=== PATIENT | male | born 1975 | race Caucasian/White ===

== ENCOUNTER 2021-06-01 09:42 | Inpatient (IN) ==
[2021-06-01] MEDS ORDERED: 0.9 % Sodium Chloride 1,000 ML IVC ONE (10:13)
[2021-06-01 11:07] LABS: Hemoglobin 11.9 g/dL (12.9-16.9)
[2021-06-01 11:10] LABS: Basophils % 0.1 %; Hematocrit 33.1 % (37.5-50.1); Immature Granulocytes % 0.9 % (0-4); Lymphocytes % 9.2 %; Mean Corpuscular Hemoglobin 29.2 pg (28.0-33.3); Mean Corpuscular Volume 81.3 fL (83.0-100.0); Monocytes # 0.5 K/mcL (0.0-1.3); Monocytes % 3.1 %; Neutrophils # 12.7 K/mcL (1.6-8.9); Platelet Count 113 K/mcL (140-400); Red Blood Count 4.07 M/mcL (4.19-5.50); Red Cell Distribution Width 13.7 % (11.5-14.5); Segmented Neutrophils % 86.7 %; White Blood Count 14.6 K/mcL (4.3-11.1)
[2021-06-01 11:11] LABS: Lymphocytes # 1.3 K/mcL (0.6-4.6)
[2021-06-01 11:28] LABS: Alanine Aminotransferase 32 Units/L (7-52); Albumin 2.4 g/dL (3.5-5.7); Albumin/Globulin Ratio 0.5 (1.1-2.2); Alkaline Phosphatase 89 Units/L (34-104); Aspartate Amino Transferase 41 Units/L (13-39); BUN/Creatinine Ratio 27 (6-26); Bilirubin,Direct 0.1 mg/dL (0.0-0.2); Bilirubin,Indirect 0.6 mg/dL (0.0-1.0); Bilirubin,Total 0.7 mg/dL (0.3-1.0); Blood Urea Nitrogen 24 mg/dL (6-20); Calcium 7.7 mg/dL (8.6-10.3); Carbon Dioxide 22 mEq/L (23-29); Chloride 95 mEq/L (98-107); Ethanol < 10 mg/dL (Less than 10); Globulin 5.1 g/dL (2.4-3.5); Glucose 95 mg/dL (70-105); Lipase 39 Units/L (11-82); Osmolality,Calculated 268 (280-300); Potassium 2.9 mEq/L (3.5-5.1); Sodium 127 mEq/L (136-145); Total Protein 7.5 g/dL (6.4-8.9); eGFR For African Americans > 60 (> 60); eGFR For Non-African Americans > 60 (> 60)
[2021-06-01 11:35] LABS: Influenza A PCR Negative (Negative); Influenza B PCR Negative (Negative); Resp. Syncytial Virus PCR Negative (Negative); SARS-CoV-2 by PCR (In House) Negative (Negative)
[2021-06-01 11:46] LABS: Troponin I 0.77 ng/mL (< 0.04)
[2021-06-01 11:59] LABS: Activated Partial Thrombo Time 28.1 Seconds (26.0-36.0)
[2021-06-01 12:21] LABS: Bacteria,Urine Few per hpf (None-Few); Bilirubin,Urine Negative (Negative); Blood,Urine Large (Negative); Clarity,Urine Clear (Clear); Color,Urine Colorless (Yellow); Glucose,Urine (UA) Normal (Normal); Hyaline Casts,Urine Few per lpf (None Seen); Ketones,Urine Negative (Negative); Leukocyte Esterase,Urine Small (Negative); Mucus,Urine Few per lpf (None-Few); Nitrite,Urine Negative (Negative); Protein,Urine 30 mg/dL (Neg-Trace); Specific Gravity,Urine 1.014 (1.010-1.025); Squamous Epithelial Cell,Urine Few per hpf (None-Few); Urobilinogen,Urine Normal (Normal)
[2021-06-01 12:42] LABS: ABG Base Excess -1 mEq/L (-2 to 3); ABG HCO3 20 mEq/L (21-27); ABG Oxygen Saturation 98 % (95-98); ABG PCO2 24 mmHg (35-45); ABG PH 7.54 pH Units (7.32-7.45); ABG PO2 88 mmHg (85-104); ABG TCO2 21 mEq/L (20-26)
[2021-06-01 12:59] LABS: Amphetamine Screen,Urine Negative ng/mL (Cutoff=1000); Barbiturate Screen,Urine Negative ng/mL (Cutoff=200); Benzodiazepines Screen,Urine Negative ng/mL (Cutoff=200); Cannabinoid Screen,Urine Positive ng/mL (Cutoff = 50); Cocaine Screen,Urine Negative ng/mL (Cutoff= 300); Opiate Screen,Urine Negative ng/mL (Cutoff=300); Phencyclidine Screen,Urine Negative ng/mL (Cutoff=25)
[2021-06-01] MEDS ORDERED: Isovue-370 500 ML BOTTLE IVP ONE (13:04)
[2021-06-01 14:28] LABS: INR 2.1; Prothrombin Time 22.9 Seconds (9.4-12.1)
[2021-06-01] MEDS ORDERED: Potassium Chloride Elixir 20 MEQ/15 ML UDC PO ONE (14:45)
[2021-06-01] MEDS ORDERED: MOM Conc 10 ML UD.LIQ PO PRN (15:49)
[2021-06-01] MEDS ORDERED: Ondansetron ODT 4 MG TAB.RAPDIS SL PRN (15:49)
[2021-06-01] MEDS ORDERED: Mag Hydrox/Al Hydrox/Simeth 30 ML UDC PO PRN (15:49)
[2021-06-01] MEDS ORDERED: Naloxone 0.4 MG/ML INJ IVP PRN (15:49)
[2021-06-01] MEDS ORDERED: Perflutren Lipid Microsphere 1.3 ML in 0.9 % Sodium Chloride 8.7 ML IVP PRN (15:54)
[2021-06-01] MEDS ORDERED: *HR* Heparin 5,000 UNIT/ML VIAL IVP ONE (15:57)
[2021-06-01] MEDS ORDERED: *HR* Heparin 5,000 UNIT/ML VIAL IVP PRN (15:57)
[2021-06-01] MEDS: Heparin 25,000UNIT/250ML 1/2NS 25,000 UNIT/250 ML IV.SOLN IVC SCH (17:10)
[2021-06-01] MEDS: 0.9 % Sodium Chloride 1,000 ML IVC SCH (17:22)
[2021-06-01] MEDS: cefTRIAXone 1,000 MG in 0.9 % Sodium Chloride 10 ML IVP SCH (17:24)
[2021-06-01 22:44] LABS: Hematocrit 31.4 % (37.5-50.1); Hemoglobin 10.5 g/dL (12.9-16.9); Mean Corpuscular HGB Conc 33.4 g/dL (31.6-35.5); Mean Corpuscular Volume 83.7 fL (83.0-100.0); Mean Platelet Volume 11.6 fL (9.4-12.4); Platelet Count 103 K/mcL (140-400); Red Blood Count 3.75 M/mcL (4.19-5.50); Red Cell Distribution Width 13.8 % (11.5-14.5)
[2021-06-01 22:52] LABS: Heparin anti-factor XA UFH 0.22 IU/mL (0.30-0.70); Prothrombin Time 21.7 Seconds (9.4-12.1)
[2021-06-01] MEDS: *HR* Heparin 5,000 UNIT/ML VIAL IVP PRN (23:09)
[2021-06-02 00:51] LABS: CTX-M ESBL Gene Not Detected (Not Detect); IMP Carbapenem-Resist Gene Not Detected (Not Detect); blaKPC Carbapenem-Resist Gene Not Detected (Not Detect)
[2021-06-02 00:52] LABS: A.calcoaceticus-baumannii cplx Not Detected (Not Detect); Bacteroides fragilis by PCR Not Detected (Not Detect); Enterobacter cloacae Cmplx PCR Not Detected (Not Detect); Enterococcus faecalis by PCR Not Detected (Not Detect); Enterococcus faecium by PCR Not Detected (Not Detect); Escherichia coli by PCR Not Detected (Not Detect); Klebsiella aerogenes by PCR Not Detected (Not Detect); Klebsiella oxytoca by PCR Not Detected (Not Detect); NDM Carbapenem-Resist Gene Not Detected (Not Detect); OXA-48-like Carbap-Resist Gene Not Detected (Not Detect); Staph epidermidis by PCR Not Detected (Not Detect); Staph lugdunensis by PCR Not Detected (Not Detect); Staphylococcus aureus by PCR Not Detected (Not Detect); Staphylococcus by PCR Not Detected (Not Detect); Streptococcus agalactiae(B)PCR Not Detected (Not Detect); Streptococcus by PCR Not Detected (Not Detect); Streptococcus pneumoniae PCR Not Detected (Not Detect); Streptococcus pyogenes (A) PCR Not Detected (Not Detect); VIM Carbapenem-Resist Gene Not Detected (Not Detect)
[2021-06-02 00:53] LABS: Candida albicans by PCR Not Detected (Not Detect); Candida auris by PCR Not Detected (Not Detect); Candida glabrata by PCR Not Detected (Not Detect); Candida krusei by PCR Not Detected (Not Detect); Candida parapsilosis by PCR Not Detected (Not Detect); Candida tropicalis by PCR Not Detected (Not Detect); Crypto. neoformans/gattii PCR Not Detected (Not Detect); Klebs. pneumoniae group by PCR Not Detected (Not Detect); Proteus by PCR Not Detected (Not Detect); Pseudomonas aeruginosa by PCR Not Detected (Not Detect); Salmonella species by PCR Not Detected (Not Detect); Serratia marcescens by PCR DETECTED (Not Detect); Stenotrophomonas maltophilia Not Detected (Not Detect)
[2021-06-02 01:56] LABS: Basophils % 0.1 %; Monocytes % 3.3 %
[2021-06-02 01:58] LABS: Hematocrit 29.8 % (37.5-50.1); Hemoglobin 10.3 g/dL (12.9-16.9); Immature Granulocytes % 0.8 % (0-4); Immature Platelets 7.6 % (1.1-6.1); Lymphocytes # 1.2 K/mcL (0.6-4.6); Lymphocytes % 9.6 %; Mean Corpuscular HGB Conc 34.6 g/dL (31.6-35.5); Mean Corpuscular Hemoglobin 28.4 pg (28.0-33.3); Mean Corpuscular Volume 82.1 fL (83.0-100.0); Mean Platelet Volume 12.7 fL (9.4-12.4); Monocytes # 0.4 K/mcL (0.0-1.3); Red Blood Count 3.63 M/mcL (4.19-5.50); Red Cell Distribution Width 13.7 % (11.5-14.5); Segmented Neutrophils % 86.2 %; White Blood Count 12.1 K/mcL (4.3-11.1)
[2021-06-02 02:02] LABS: Neutrophils # 10.4 K/mcL (1.6-8.9); Platelet Count 89 K/mcL (140-400)
[2021-06-02 02:21] LABS: Alanine Aminotransferase 29 Units/L (7-52); Albumin 2.2 g/dL (3.5-5.7); Albumin/Globulin Ratio 0.5 (1.1-2.2); Alkaline Phosphatase 81 Units/L (34-104); Aspartate Amino Transferase 35 Units/L (13-39); BUN/Creatinine Ratio 27 (6-26); Bilirubin,Total 0.6 mg/dL (0.3-1.0); Blood Urea Nitrogen 21 mg/dL (6-20); Calcium 7.2 mg/dL (8.6-10.3); Carbon Dioxide 19 mEq/L (23-29); Chloride 102 mEq/L (98-107); Cholesterol 95 mg/dL (< 200); Globulin 4.6 g/dL (2.4-3.5); Glucose 100 mg/dL (70-105); HDL Cholesterol 5 mg/dL (40-59); LDL Cholesterol,Calculated 50 mg/dL (< 100); Osmolality,Calculated 271 (280-300); Potassium 3.5 mEq/L (3.5-5.1); Sodium 129 mEq/L (136-145); Total Protein 6.8 g/dL (6.4-8.9); Triglycerides 202 mg/dL (< 150); eGFR For African Americans > 60 (> 60); eGFR For Non-African Americans > 60 (> 60)
[2021-06-02 02:28] LABS: Thyroid Stimulating Hormone 1.01 mcIU/mL (0.340-5.600)
[2021-06-02] MEDS: *HR* Heparin 5,000 UNIT/ML VIAL IVP PRN ×2 (06:19→14:54)
[2021-06-02] MEDS: 0.9 % Sodium Chloride 1,000 ML IVC SCH ×2 (07:39→21:08)
[2021-06-02] MEDS: cefTRIAXone 1,000 MG in 0.9 % Sodium Chloride 10 ML IVP SCH (07:41)
[2021-06-02] MEDS: Heparin 25,000UNIT/250ML 1/2NS 25,000 UNIT/250 ML IV.SOLN IVC SCH (11:04)
[2021-06-02] MEDS: Ertapenem 1,000 MG in 0.9 % Sodium Chloride Mini Bag 100 ML IVPB SCH (12:57)
[2021-06-02] MEDS ORDERED: Isovue-370 500 ML BOTTLE IVP ONE (14:00)
[2021-06-02] MEDS: Nicotine 21 MG PATCH.TD24 TD SCH (15:06)
[2021-06-02] MEDS ORDERED: Isovue-370 500 ML BOTTLE PO ONE (18:06)
[2021-06-02] MEDS ORDERED: *HR* Metoprolol 5 MG/5 ML VIAL IVP ONE (22:20)
[2021-06-02] MEDS: cloNIDine HCL 0.1 MG TABLET PO SCH (22:38)
[2021-06-02] MEDS: Melatonin 3 MG TABLET PO PRN (22:42)
[2021-06-03] MEDS ORDERED: *HR* Metoprolol 5 MG/5 ML VIAL IVP ONE ×2 (01:56→15:38)
[2021-06-03 02:55] LABS: Basophils % 0.1 %; Hematocrit 27.8 % (37.5-50.1); Hemoglobin 9.2 g/dL (12.9-16.9); Immature Granulocytes % 0.9 % (0-4); Lymphocytes # 1.1 K/mcL (0.6-4.6); Lymphocytes % 8.6 %; Mean Corpuscular HGB Conc 33.1 g/dL (31.6-35.5); Mean Corpuscular Hemoglobin 27.6 pg (28.0-33.3); Mean Corpuscular Volume 83.5 fL (83.0-100.0); Mean Platelet Volume 12.1 fL (9.4-12.4); Monocytes # 0.5 K/mcL (0.0-1.3); Monocytes % 3.5 %; Neutrophils # 11.2 K/mcL (1.6-8.9); Platelet Count 102 K/mcL (140-400); Red Blood Count 3.33 M/mcL (4.19-5.50); Red Cell Distribution Width 14.2 % (11.5-14.5); Segmented Neutrophils % 86.9 %; White Blood Count 12.9 K/mcL (4.3-11.1)
[2021-06-03 03:14] LABS: BUN/Creatinine Ratio 18 (6-26); Blood Urea Nitrogen 16 mg/dL (6-20); Carbon Dioxide 17 mEq/L (23-29); Chloride 105 mEq/L (98-107); Glucose 111 mg/dL (70-105); Osmolality,Calculated 272 (280-300); Phosphorous 2.1 mg/dL (2.7-4.5); Potassium 3.2 mEq/L (3.5-5.1); Sodium 130 mEq/L (136-145); eGFR For African Americans > 60 (> 60); eGFR For Non-African Americans > 60 (> 60)
[2021-06-03] MEDS: Heparin 25,000UNIT/250ML 1/2NS 25,000 UNIT/250 ML IV.SOLN IVC SCH ×2 (03:35→16:00)
[2021-06-03] MEDS: *HR* Heparin 5,000 UNIT/ML VIAL IVP PRN ×2 (03:36→13:23)
[2021-06-03] MEDS: cloNIDine HCL 0.1 MG TABLET PO SCH (07:55)
[2021-06-03] MEDS: Ertapenem 1,000 MG in 0.9 % Sodium Chloride Mini Bag 100 ML IVPB SCH (07:55)
[2021-06-03] MEDS: Nicotine 21 MG PATCH.TD24 TD SCH (08:32)
[2021-06-03] MEDS: 0.9 % Sodium Chloride 1,000 ML IVC SCH (10:55)
[2021-06-03] MEDS: levoFLOXacin 750 MG/150 ML 750 MG/150 ML BAG IVPB SCH (12:38)
[2021-06-03] MEDS ORDERED: *HR* Metoprolol 5 MG/5 ML VIAL IVP PRN ×2 (15:39)
[2021-06-03] MEDS ORDERED: *HR* LORazepam 2 MG/ML VIAL IVP PRN (15:39)
[2021-06-04] MEDS: 0.9 % Sodium Chloride 1,000 ML IVC SCH ×2 (00:19→20:34)
[2021-06-04 02:38] LABS: Basophils % 0.1 %; Hematocrit 25.7 % (37.5-50.1); Immature Granulocytes % 0.8 % (0-4)
[2021-06-04 02:40] LABS: Hemoglobin 8.6 g/dL (12.9-16.9); Immature Platelets 7.1 % (1.1-6.1); Lymphocytes # 1.3 K/mcL (0.6-4.6); Lymphocytes % 11.3 %; Mean Corpuscular HGB Conc 33.5 g/dL (31.6-35.5); Mean Corpuscular Hemoglobin 28.4 pg (28.0-33.3); Mean Corpuscular Volume 84.8 fL (83.0-100.0); Mean Platelet Volume 12.3 fL (9.4-12.4); Monocytes # 0.5 K/mcL (0.0-1.3); Monocytes % 4.3 %; Red Blood Count 3.03 M/mcL (4.19-5.50); Red Cell Distribution Width 14.3 % (11.5-14.5); Segmented Neutrophils % 83.5 %; White Blood Count 11.1 K/mcL (4.3-11.1)
[2021-06-04 02:41] LABS: Neutrophils # 9.3 K/mcL (1.6-8.9); Platelet Count 81 K/mcL (140-400)
[2021-06-04 02:57] LABS: BUN/Creatinine Ratio 19 (6-26); Blood Urea Nitrogen 14 mg/dL (6-20); Calcium 6.9 mg/dL (8.6-10.3); Carbon Dioxide 17 mEq/L (23-29); Chloride 107 mEq/L (98-107); Glucose 94 mg/dL (70-105); Magnesium 1.9 mg/dL (1.6-2.6); Osmolality,Calculated 268 (280-300); Phosphorous 2.4 mg/dL (2.7-4.5); Potassium 3.2 mEq/L (3.5-5.1); Sodium 129 mEq/L (136-145); eGFR For African Americans > 60 (> 60); eGFR For Non-African Americans > 60 (> 60)
[2021-06-04] MEDS: Heparin 25,000UNIT/250ML 1/2NS 25,000 UNIT/250 ML IV.SOLN IVC SCH (03:01)
[2021-06-04] MEDS: *HR* Heparin 5,000 UNIT/ML VIAL IVP PRN (03:13)
[2021-06-04] MEDS ORDERED: *HR* FentaNYL (PF) 100 MCG/2 ML VIAL ONE (08:34)
[2021-06-04] MEDS ORDERED: *HR* Midazolam HCl 2 MG/2 ML VIAL ONE (08:34)
[2021-06-04] MEDS ORDERED: 0.9 % Sodium Chloride 2,000 ML ONE (08:34)
[2021-06-04] MEDS ORDERED: Nitroglycerin 1,000 MCG/5 ML VIAL IV ONE (08:35)
[2021-06-04] MEDS ORDERED: *HR* Heparin 10,000 UNIT/10 ML VIAL ONE (08:35)
[2021-06-04] MEDS ORDERED: ISOVUE-370 200 ML INFUS..BTL ONE (08:35)
[2021-06-04] MEDS ORDERED: Heparin 1,000 UNITS/500 mL 500 ML ONE (08:35)
[2021-06-04] MEDS ORDERED: Gadolinium Contrast Agent (WT Based) IV PRN (10:28)
[2021-06-04] MEDS: levoFLOXacin 750 MG/150 ML 750 MG/150 ML BAG IVPB SCH (11:25)
[2021-06-04] MEDS: Nicotine 21 MG PATCH.TD24 TD SCH (12:18)
[2021-06-04] MEDS ORDERED: Acetaminophen 325 MG TABLET PO PRN (13:34)
[2021-06-04] MEDS: Ertapenem 1,000 MG in 0.9 % Sodium Chloride Mini Bag 100 ML IVPB SCH (14:18)
[2021-06-04 16:13] LABS: C.difficile Toxin A/B Gene PCR Not detected (Not detect); Campylobacter by PCR Not detected (Not detect); Enteroaggregative E.coli(EAEC) Not detected (Not detect); Plesiomonas shigelloides PCR Not detected (Not detect); Salmonella PCR Not detected (Not detect); Vibrio PCR Not detected (Not detect); Vibrio cholerae PCR Not detected (Not detect); Yersinia enterocolitica PCR Not detected (Not detect)
[2021-06-04 16:14] LABS: Adenovirus F 40/41 PCR Not detected (Not detect); Astrovirus PCR Not detected (Not detect); Cryptosporidium by PCR Not detected (Not detect); Cyclospora cayetanensis PCR Not detected (Not detect); E. coli O157 by PCR Not detected (Not detect); Entamoeba histolytica PCR Not detected (Not detect); Enteropathogenic E.coli(EPEC) Not detected (Not detect); Enterotoxigenic E.coli (ETEC) Not detected (Not detect); Giardia lamblia PCR Not detected (Not detect); Norovirus GI/GII PCR Not detected (Not detect); Rotavirus A PCR Not detected (Not detect); Sapovirus PCR Not detected (Not detect); Shig/EnteroinvasiveE coli EIEC Not detected (Not detect); Shigalike tox-prod E coli STEC Not detected (Not detect)
[2021-06-04] MEDS: *HR* Heparin 5,000 UNIT/ML VIAL SQ SCH (16:48)
[2021-06-05] MEDS: *HR* Heparin 5,000 UNIT/ML VIAL SQ SCH ×2 (05:57→16:21)
[2021-06-05] MEDS ORDERED: Aspirin 81 MG TAB.CHEW PO SCH (09:00)
[2021-06-05] MEDS: Cefepime HCl 2,000 MG in 0.9 % Sodium Chloride 10 ML IVP SCH ×3 (09:49→23:50)
[2021-06-05] MEDS: Nicotine 21 MG PATCH.TD24 TD SCH (09:50)
[2021-06-05] MEDS: 0.9 % Sodium Chloride 1,000 ML IVC SCH ×2 (09:51→18:06)
[2021-06-05 10:17] LABS: Basophils % 0.1 %; Hematocrit 25.7 % (37.5-50.1); Hemoglobin 8.8 g/dL (12.9-16.9); Lymphocytes # 0.9 K/mcL (0.6-4.6); Lymphocytes % 7.8 %; Mean Corpuscular HGB Conc 34.2 g/dL (31.6-35.5); Mean Corpuscular Hemoglobin 28.3 pg (28.0-33.3); Mean Corpuscular Volume 82.6 fL (83.0-100.0); Mean Platelet Volume 12.1 fL (9.4-12.4); Monocytes # 0.4 K/mcL (0.0-1.3); Monocytes % 3.4 %; Neutrophils # 10.6 K/mcL (1.6-8.9); Platelet Count 102 K/mcL (140-400); Red Blood Count 3.11 M/mcL (4.19-5.50); Red Cell Distribution Width 14.6 % (11.5-14.5); Segmented Neutrophils % 87.7 %; White Blood Count 12.1 K/mcL (4.3-11.1)
[2021-06-05 10:36] LABS: BUN/Creatinine Ratio 16 (6-26); Blood Urea Nitrogen 14 mg/dL (6-20); Calcium 7.2 mg/dL (8.6-10.3); Carbon Dioxide 15 mEq/L (23-29); Chloride 111 mEq/L (98-107); Glucose 98 mg/dL (70-105); Magnesium 1.7 mg/dL (1.6-2.6); Osmolality,Calculated 270 (280-300); Phosphorous 2.4 mg/dL (2.7-4.5); Potassium 3.5 mEq/L (3.5-5.1); Sodium 130 mEq/L (136-145); eGFR For African Americans > 60 (> 60); eGFR For Non-African Americans > 60 (> 60)
[2021-06-05] MEDS: levoFLOXacin 750 MG/150 ML 750 MG/150 ML BAG IVPB SCH (12:33)
[2021-06-05] MEDS: Metoprolol XL (24 HR) Succ 25 MG TAB.ER.24H PO SCH (20:48)
[2021-06-05] MEDS: Melatonin 3 MG TABLET PO PRN (23:50)
[2021-06-06] MEDS: 0.9 % Sodium Chloride 1,000 ML IVC SCH ×3 (02:21→19:46)
[2021-06-06 04:44] LABS: Basophils % 0.1 %; Hemoglobin 8.1 g/dL (12.9-16.9); Red Cell Distribution Width 14.6 % (11.5-14.5)
[2021-06-06 04:46] LABS: Hematocrit 24.4 % (37.5-50.1); Immature Granulocytes % 0.7 % (0-4); Immature Platelets 6.4 % (1.1-6.1); Lymphocytes # 1.1 K/mcL (0.6-4.6); Lymphocytes % 10.6 %; Mean Corpuscular HGB Conc 33.2 g/dL (31.6-35.5); Mean Corpuscular Hemoglobin 28.1 pg (28.0-33.3); Mean Corpuscular Volume 84.7 fL (83.0-100.0); Mean Platelet Volume 12.4 fL (9.4-12.4); Monocytes % 4.5 %; Neutrophils # 8.3 K/mcL (1.6-8.9); Red Blood Count 2.88 M/mcL (4.19-5.50); Segmented Neutrophils % 84.1 %; White Blood Count 9.9 K/mcL (4.3-11.1)
[2021-06-06 04:50] LABS: Monocytes # 0.5 K/mcL (0.0-1.3); Platelet Count 96 K/mcL (140-400)
[2021-06-06 05:07] LABS: Chol/HDL Ratio 10.9 (0-4.9)
[2021-06-06 05:08] LABS: BUN/Creatinine Ratio 25 (6-26); Blood Urea Nitrogen 18 mg/dL (6-20); Calcium 7.3 mg/dL (8.6-10.3); Carbon Dioxide 17 mEq/L (23-29); Chloride 111 mEq/L (98-107); Glucose 118 mg/dL (70-105); Magnesium 1.9 mg/dL (1.6-2.6); Osmolality,Calculated 281 (280-300); Potassium 3.5 mEq/L (3.5-5.1); Sodium 134 mEq/L (136-145); eGFR For African Americans > 60 (> 60); eGFR For Non-African Americans > 60 (> 60)
[2021-06-06] MEDS: *HR* Heparin 5,000 UNIT/ML VIAL SQ SCH ×2 (05:44→16:55)
[2021-06-06 08:08] LABS: Estimated Average Glucose 120 mg/dl; Hemoglobin A1C 5.8 %
[2021-06-06] MEDS: Cefepime HCl 2,000 MG in 0.9 % Sodium Chloride 10 ML IVP SCH ×2 (08:34→16:54)
[2021-06-06] MEDS: Nicotine 21 MG PATCH.TD24 TD SCH (08:34)
[2021-06-06] MEDS: Metoprolol XL (24 HR) Succ 25 MG TAB.ER.24H PO SCH ×2 (08:34→19:47)
[2021-06-06] MEDS: levoFLOXacin 750 MG/150 ML 750 MG/150 ML BAG IVPB SCH (11:53)
[2021-06-06 20:28] LABS: Basophils % 0.1 %; Hematocrit 22.8 % (37.5-50.1); Hemoglobin 7.7 g/dL (12.9-16.9); Immature Granulocytes % 0.7 % (0-4); Lymphocytes # 1.1 K/mcL (0.6-4.6); Lymphocytes % 12.2 %; Mean Corpuscular HGB Conc 33.8 g/dL (31.6-35.5); Mean Corpuscular Hemoglobin 28.3 pg (28.0-33.3); Mean Corpuscular Volume 83.8 fL (83.0-100.0); Mean Platelet Volume 11.9 fL (9.4-12.4); Monocytes # 0.3 K/mcL (0.0-1.3); Monocytes % 3.2 %; Neutrophils # 7.6 K/mcL (1.6-8.9); Platelet Count 106 K/mcL (140-400); Red Blood Count 2.72 M/mcL (4.19-5.50); Red Cell Distribution Width 14.7 % (11.5-14.5); Segmented Neutrophils % 83.8 %; White Blood Count 9.1 K/mcL (4.3-11.1)
[2021-06-06 20:34] LABS: Estimated Average Glucose 123 mg/dl; Hemoglobin A1C 5.9 %
[2021-06-06 20:43] LABS: INR 2.2; Prothrombin Time 24.8 Seconds (9.4-12.1)
[2021-06-06 20:45] LABS: Activated Partial Thrombo Time 32.7 Seconds (26.0-36.0)
[2021-06-06 20:52] LABS: BUN/Creatinine Ratio 24 (6-26); Blood Urea Nitrogen 18 mg/dL (6-20); Calcium 6.8 mg/dL (8.6-10.3); Carbon Dioxide 15 mEq/L (23-29); Chloride 111 mEq/L (98-107); Glucose 104 mg/dL (70-105); Osmolality,Calculated 276 (280-300); Potassium 3.1 mEq/L (3.5-5.1); Sodium 132 mEq/L (136-145); eGFR For African Americans > 60 (> 60); eGFR For Non-African Americans > 60 (> 60)
[2021-06-06 20:53] LABS: BUN/Creatinine Ratio 24 (6-26); Blood Urea Nitrogen 18 mg/dL (6-20); Calcium 6.7 mg/dL (8.6-10.3); Carbon Dioxide 15 mEq/L (23-29); Chloride 112 mEq/L (98-107); Chol/HDL Ratio 9.4 (0-4.9); Cholesterol 75 mg/dL (< 200); Glucose 102 mg/dL (70-105); HDL Cholesterol 8 mg/dL (40-59); LDL Cholesterol,Calculated 28 mg/dL (< 100); Osmolality,Calculated 278 (280-300); Sodium 133 mEq/L (136-145); Triglycerides 197 mg/dL (< 150); eGFR For African Americans > 60 (> 60); eGFR For Non-African Americans > 60 (> 60)
[2021-06-06] MEDS: Chlorhexidine Rinse 15 ML MOUTHWASH MM SCH (22:05)
[2021-06-06] MEDS: Melatonin 3 MG TABLET PO PRN (22:05)
[2021-06-07] MEDS: Cefepime HCl 2,000 MG in 0.9 % Sodium Chloride 10 ML IVP SCH ×2 (00:15→17:18)
[2021-06-07] MEDS: 0.9 % Sodium Chloride 1,000 ML IVC SCH ×3 (03:21→21:43)
[2021-06-07] MEDS: Chlorhexidine Rinse 15 ML MOUTHWASH MM SCH ×4 (03:25→20:33)
[2021-06-07] MEDS: *HR* Heparin 5,000 UNIT/ML VIAL SQ SCH ×2 (05:16→17:18)
[2021-06-07] MEDS ORDERED: DOBUTamine 1,000 MG/250 ML BAG ONE (05:46)
[2021-06-07] MEDS ORDERED: NiCARdipine 2.5 MG/10 ML Syringe IVPB ONE (05:46)
[2021-06-07] MEDS ORDERED: *HR* FentaNYL (PF) 1,000 MCG/20 ML VIAL ONE (05:53)
[2021-06-07] MEDS ORDERED: *HR* Midazolam HCl 5 MG/5 ML VIAL IVP ONE ×2 (05:53→10:52)
[2021-06-07] MEDS ORDERED: niCARdipine 20 MG/200 ML MLS IVC ONE (05:55)
[2021-06-07] MEDS ORDERED: *HR* Norepinephrine 4 MG/4 ML VIAL IVC ONE (05:55)
[2021-06-07] MEDS ORDERED: *HR* Rocuronium Bromide 50 MG/5 ML VIAL ONE ×2 (05:55→10:33)
[2021-06-07] MEDS ORDERED: Aspirin Enteric Coated 81 MG Tablet PO ONE (06:00)
[2021-06-07] MEDS ORDERED: CeFAZolin Syr 2,000MG/20 ML 2,000 MG/20 ML SYRINGE IVPB ONE (06:00)
[2021-06-07] MEDS ORDERED: Aspirin 81 MG TAB.CHEW PO ONE ×2 (06:00)
[2021-06-07] MEDS ORDERED: Tranexamic Acid 1,000 MG/10 ML VIAL ONE (06:01)
[2021-06-07] MEDS ORDERED: *HR* Etomidate 20 MG/10 ML AMPUL IVP ONE (06:01)
[2021-06-07] MEDS ORDERED: Protamine Sulfate 250 MG/25 ML VIAL IVP ONE (06:02)
[2021-06-07] MEDS ORDERED: Isovue-300 50ML VIAL ONE (06:29)
[2021-06-07] MEDS ORDERED: Heparin 1,000 UNITS/500 mL 500 ML ONE (06:45)
[2021-06-07] MEDS ORDERED: Norepinephrine 4 MG in 0.9 % Sodium Chloride 250 ML IVC PRN ×2 (07:45→13:06)
[2021-06-07] MEDS ORDERED: del Nido Cardioplegia Solution PF ONE ×2 (07:45)
[2021-06-07] MEDS ORDERED: Heparin 15,000 UNIT in 0.9 % Sodium Chloride 500 ML IV ONE (07:45)
[2021-06-07] MEDS ORDERED: Buckersberg's Blood Cardioplegia PF ONE (07:45)
[2021-06-07 08:40] LABS: ABG Base Excess -6 mEq/L (-2 to 3); ABG Chloride 109 mEq/L (98-107); ABG Glucose 85 mg/dL (60-95); ABG HCO3 17 mEq/L (21-27); ABG Ionized Calcium 1.17 mmol/L (1.15-1.35); ABG Oxygen Saturation 100 % (95-98); ABG PCO2 24 mmHg (35-45); ABG PH 7.47 pH Units (7.32-7.45); ABG PO2 412 mmHg (85-104); ABG TCO2 18 mEq/L (20-26)
[2021-06-07 09:03] LABS: ABG Base Excess -9 mEq/L (-2 to 3); ABG Chloride 110 mEq/L (98-107); ABG Glucose 93 mg/dL (60-95); ABG HCO3 17 mEq/L (21-27); ABG Ionized Calcium 1.21 mmol/L (1.15-1.35); ABG Oxygen Saturation 99 % (95-98); ABG PCO2 38 mmHg (35-45); ABG PH 7.27 pH Units (7.32-7.45); ABG PO2 143 mmHg (85-104); ABG TCO2 19 mEq/L (20-26)
[2021-06-07 09:38] LABS: ABG Base Excess -1 mEq/L (-2 to 3); ABG Chloride 105 mEq/L (98-107); ABG Glucose 88 mg/dL (60-95); ABG HCO3 24 mEq/L (21-27); ABG Oxygen Saturation 100 % (95-98); ABG PCO2 41 mmHg (35-45); ABG PH 7.38 pH Units (7.32-7.45); ABG PO2 589 mmHg (85-104); ABG TCO2 25 mEq/L (20-26)
[2021-06-07] MEDS ORDERED: Sodium Bicarbonate 50 MEQ/50 ML VIAL ONE (09:56)
[2021-06-07 10:08] LABS: ABG Base Excess -8 mEq/L (-2 to 3); ABG Chloride 108 mEq/L (98-107); ABG Glucose 181 mg/dL (60-95); ABG HCO3 19 mEq/L (21-27); ABG Ionized Calcium 1.15 mmol/L (1.15-1.35); ABG Oxygen Saturation 100 % (95-98); ABG PCO2 39 mmHg (35-45); ABG PH 7.29 pH Units (7.32-7.45); ABG PO2 599 mmHg (85-104); ABG TCO2 20 mEq/L (20-26)
[2021-06-07 10:41] LABS: ABG Base Excess -7 mEq/L (-2 to 3); ABG Chloride 106 mEq/L (98-107); ABG Glucose 208 mg/dL (60-95); ABG HCO3 18 mEq/L (21-27); ABG Ionized Calcium 1.02 mmol/L (1.15-1.35); ABG Oxygen Saturation 100 % (95-98); ABG PCO2 34 mmHg (35-45); ABG PH 7.33 pH Units (7.32-7.45); ABG PO2 604 mmHg (85-104); ABG TCO2 19 mEq/L (20-26)
[2021-06-07] MEDS ORDERED: *HR* FentaNYL (PF) 250 MCG/5 ML VIAL ONE (10:52)
[2021-06-07 10:55] LABS: ABG Base Excess -5 mEq/L (-2 to 3); ABG Chloride 108 mEq/L (98-107); ABG Glucose 179 mg/dL (60-95); ABG HCO3 19 mEq/L (21-27); ABG Ionized Calcium 1.01 mmol/L (1.15-1.35); ABG Oxygen Saturation 100 % (95-98); ABG PCO2 31 mmHg (35-45); ABG PH 7.41 pH Units (7.32-7.45); ABG PO2 598 mmHg (85-104); ABG TCO2 20 mEq/L (20-26)
[2021-06-07] MEDS ORDERED: Albumin Human 5% 12.5 GM/250 ML IV.SOLN ONE ×2 (11:16→13:19)
[2021-06-07 11:27] LABS: ABG Base Excess -6 mEq/L (-2 to 3); ABG Chloride 109 mEq/L (98-107); ABG Glucose 196 mg/dL (60-95); ABG HCO3 19 mEq/L (21-27); ABG Ionized Calcium 1.24 mmol/L (1.15-1.35); ABG Oxygen Saturation 100 % (95-98); ABG PCO2 30 mmHg (35-45); ABG PO2 571 mmHg (85-104); ABG TCO2 20 mEq/L (20-26)
[2021-06-07] MEDS: Albumin Human 5% 12.5 GM/250 ML IV.SOLN IVPB PRN ×6 (12:22→15:59)
[2021-06-07 12:35] LABS: ABG Base Excess -6 mEq/L (-2 to 3); ABG HCO3 21 mEq/L (21-27); ABG Oxygen Saturation 95 % (95-98); ABG PCO2 47 mmHg (35-45); ABG PH 7.26 pH Units (7.32-7.45); ABG PO2 88 mmHg (85-104); ABG TCO2 23 mEq/L (20-26); Blood Gas VT 500 cc
[2021-06-07] MEDS ORDERED: Potassium Chloride 40 MEQ/200 ML BAG IVPB PRN (12:43)
[2021-06-07] MEDS ORDERED: Insulin Regular, Human 100 UNIT/ML IV PRN ×2 (12:43→13:52)
[2021-06-07] MEDS ORDERED: *HR* Dextrose 50 % in Water (Syg) 50 ML SYRINGE IVP PRN ×2 (12:43→13:52)
[2021-06-07] MEDS ORDERED: Calcium Gluconate 1gm/50mL 1 GM/50 ML BAG IVPB PRN ×2 (12:46→13:54)
[2021-06-07] MEDS ORDERED: *HR* FentaNYL (PF) 100 MCG/2 ML VIAL IVP PRN (12:46)
[2021-06-07] MEDS ORDERED: Albumin Human 5% 12.5 GM/250 ML IV.SOLN IVPB PRN (12:46)
[2021-06-07] MEDS ORDERED: *HR* OxyCODONE/APAP 5/325 TABLET PO PRN ×2 (12:46→13:52)
[2021-06-07] MEDS ORDERED: Ondansetron 4 MG/2 ML VIAL IVP PRN (12:46)
[2021-06-07] MEDS ORDERED: DOBUTamine 1,000 MG/250 ML BAG IVC SCH (13:00)
[2021-06-07] MEDS ORDERED: Norepinephrine 4 MG/254 ML IV.SOLN IVC SCH (13:00)
[2021-06-07] MEDS ORDERED: Acetaminophen 325 MG TABLET PO PRN (13:06)
[2021-06-07] MEDS ORDERED: Melatonin 3 MG TABLET PO PRN (13:06)
[2021-06-07] MEDS ORDERED: MOM Conc 10 ML UD.LIQ PO PRN (13:06)
[2021-06-07] MEDS ORDERED: *HR* LORazepam 2 MG/ML VIAL IVP PRN (13:06)
[2021-06-07] MEDS ORDERED: Tranexamic Acid 1,000 MG/10 ML VIAL IR ONE (13:17)
[2021-06-07] MEDS ORDERED: *HR* Phenylephrine 10 MG/ML VIAL IVC ONE (13:17)
[2021-06-07] MEDS ORDERED: Lidocaine 2% Syringe 100 MG/5 ML IVP ONE (13:17)
[2021-06-07] MEDS ORDERED: *HR* Magnesium Sulfate 2 GM/50 ML PIGGYBACK IVPB ONE (13:17)
[2021-06-07] MEDS ORDERED: D5% in Water 250 ML IV BAG IV ONE (13:17)
[2021-06-07] MEDS ORDERED: Heparin 1,000 UNITS/500 mL IV.SOLN IR ONE (13:17)
[2021-06-07] MEDS ORDERED: Mannitol 25% vial 12.5 GM/50 ML VIAL IVPB ONE (13:17)
[2021-06-07] MEDS ORDERED: *HR* Heparin 10,000 UNIT/10 ML VIAL IR ONE (13:17)
[2021-06-07] MEDS ORDERED: Albumin Human 25% 25 GM/100 ML IV.SOLN IVPB ONE (13:17)
[2021-06-07 13:38] LABS: Hematocrit 30.4 % (37.5-50.1); Mean Corpuscular HGB Conc 32.6 g/dL (31.6-35.5); Mean Corpuscular Volume 89.1 fL (83.0-100.0); Mean Platelet Volume 12.5 fL (9.4-12.4); Monocytes # 0.3 K/mcL (0.0-1.3); Red Blood Count 3.41 M/mcL (4.19-5.50); Red Cell Distribution Width 15.5 % (11.5-14.5); White Blood Count 16.5 K/mcL (4.3-11.1)
[2021-06-07 13:39] LABS: Hemoglobin 9.9 g/dL (12.9-16.9); Platelet Count 93 K/mcL (140-400)
[2021-06-07 13:45] LABS: INR 2.2; Prothrombin Time 24.5 Seconds (9.4-12.1)
[2021-06-07] MEDS ORDERED: *HR* FentaNYL (PF) 100 MCG/2 ML VIAL IVP SCH (14:00)
[2021-06-07] MEDS: *HR* OxyCODONE/APAP 5/325 TABLET PO PRN (14:06)
[2021-06-07 14:13] LABS: Neutrophils # 13.2 K/mcL (1.6-8.9); Platelet Estimate Decreased (Normal); Toxic Granulation Present (Not Present)
[2021-06-07 14:16] LABS: Activated Partial Thrombo Time 38.3 Seconds (26.0-36.0)
[2021-06-07 14:42] LABS: Alanine Aminotransferase 31 Units/L (7-52); Albumin 1.9 g/dL (3.5-5.7); Albumin/Globulin Ratio 0.6 (1.1-2.2); Alkaline Phosphatase 78 Units/L (34-104); Aspartate Amino Transferase 70 Units/L (13-39); BUN/Creatinine Ratio 19 (6-26); Bilirubin,Total 0.8 mg/dL (0.3-1.0); Blood Urea Nitrogen 17 mg/dL (6-20); Calcium 6.6 mg/dL (8.6-10.3); Carbon Dioxide 22 mEq/L (23-29); Chloride 112 mEq/L (98-107); Glucose 143 mg/dL (70-105); Magnesium 2.8 mg/dL (1.6-2.6); Osmolality,Calculated 298 (280-300); Potassium 3.2 mEq/L (3.5-5.1); Sodium 142 mEq/L (136-145); Total Protein 4.9 g/dL (6.4-8.9); eGFR For African Americans > 60 (> 60); eGFR For Non-African Americans > 60 (> 60)
[2021-06-07] MEDS: Norepinephrine 4 MG/254 ML IV.SOLN IVC SCH ×3 (15:28→23:18)
[2021-06-07] MEDS: Potassium Chloride 40 MEQ/200 ML BAG IVPB PRN (15:33)
[2021-06-07] MEDS: levoFLOXacin 750 MG/150 ML 750 MG/150 ML BAG IVPB SCH (16:01)
[2021-06-07 16:25] LABS: ABG Base Excess -4 mEq/L (-2 to 3); ABG HCO3 23 mEq/L (21-27); ABG Oxygen Saturation 97 % (95-98); ABG PCO2 52 mmHg (35-45); ABG PH 7.26 pH Units (7.32-7.45); ABG PO2 106 mmHg (85-104); ABG TCO2 25 mEq/L (20-26)
[2021-06-07] MEDS: Metoclopramide 10 MG/2 ML VIAL IVP SCH (17:19)
[2021-06-07] MEDS ORDERED: Ketorolac 30 MG/ML VIAL IVP SCH (18:00)
[2021-06-07] MEDS ORDERED: Dexmedetomidine HCl 400 MCG/100 ML MLS IVC ONE (19:32)
[2021-06-07] MEDS: Dexmedetomidine HCl 400 MCG/100 ML MLS IVC SCH (19:35)
[2021-06-07] MEDS: *HR* FentaNYL (PF) 100 MCG/2 ML VIAL IVP PRN ×2 (19:48→22:33)
[2021-06-07] MEDS: DOBUTamine 1,000 MG/250 ML BAG IVC SCH (19:48)
[2021-06-07 20:32] LABS: ABG Base Excess -3 mEq/L (-2 to 3); ABG HCO3 19 mEq/L (21-27); ABG Oxygen Saturation 98 % (95-98); ABG PCO2 25 mmHg (35-45); ABG PH 7.49 pH Units (7.32-7.45); ABG PO2 99 mmHg (85-104); ABG TCO2 20 mEq/L (20-26); Blood Gas VT 500 cc
[2021-06-07] MEDS: Metoprolol XL (24 HR) Succ 25 MG TAB.ER.24H PO SCH (20:33)
[2021-06-07] MEDS ORDERED: Chlorhexidine Rinse 15 ML MOUTHWASH MM SCH ×2 (21:00)
[2021-06-07] MEDS: Calcium Gluconate 1gm/50mL 1 GM/50 ML BAG IVPB PRN ×2 (22:17→23:12)
[2021-06-08] MEDS: Cefepime HCl 2,000 MG in 0.9 % Sodium Chloride 10 ML IVP SCH ×4 (00:11→23:13)
[2021-06-08] MEDS: *HR* OxyCODONE/APAP 5/325 TABLET PO PRN ×5 (00:13→19:45)
[2021-06-08] MEDS: Metoclopramide 10 MG/2 ML VIAL IVP SCH ×5 (00:13→23:12)
[2021-06-08] MEDS: *HR* FentaNYL (PF) 100 MCG/2 ML VIAL IVP PRN ×3 (01:34→08:29)
[2021-06-08] MEDS: 0.9 % Sodium Chloride 1,000 ML IVC SCH (01:38)
[2021-06-08] MEDS: Norepinephrine 4 MG/254 ML IV.SOLN IVC SCH ×4 (03:30→23:06)
[2021-06-08 04:16] LABS: Basophils % 0.2 %; Eosinophils # 0.1 K/mcL (0.0-0.6); Eosinophils % 0.3 %; Hematocrit 22.8 % (37.5-50.1); Lymphocytes # 3.2 K/mcL (0.6-4.6); Lymphocytes % 18.4 %; Mean Corpuscular HGB Conc 34.2 g/dL (31.6-35.5); Mean Corpuscular Hemoglobin 29.4 pg (28.0-33.3); Mean Platelet Volume 12.3 fL (9.4-12.4); Monocytes # 0.8 K/mcL (0.0-1.3); Monocytes % 4.7 %; Neutrophils # 13.3 K/mcL (1.6-8.9); Platelet Count 107 K/mcL (140-400); Red Blood Count 2.65 M/mcL (4.19-5.50); Segmented Neutrophils % 75.4 %; White Blood Count 17.6 K/mcL (4.3-11.1)
[2021-06-08 04:22] LABS: Hemoglobin 7.8 g/dL (12.9-16.9)
[2021-06-08 04:26] LABS: BUN/Creatinine Ratio 19 (6-26); Blood Urea Nitrogen 16 mg/dL (6-20); Calcium 7.5 mg/dL (8.6-10.3); Carbon Dioxide 19 mEq/L (23-29); Chloride 114 mEq/L (98-107); Glucose 105 mg/dL (70-105); Magnesium 2.1 mg/dL (1.6-2.6); Osmolality,Calculated 292 (280-300); Potassium 3.5 mEq/L (3.5-5.1); Sodium 140 mEq/L (136-145); eGFR For African Americans > 60 (> 60); eGFR For Non-African Americans > 60 (> 60)
[2021-06-08 04:37] LABS: INR 1.7; Prothrombin Time 19.4 Seconds (9.4-12.1)
[2021-06-08 04:39] LABS: Activated Partial Thrombo Time 36.6 Seconds (26.0-36.0)
[2021-06-08] MEDS: Calcium Gluconate 1gm/50mL 1 GM/50 ML BAG IVPB PRN (05:34)
[2021-06-08] MEDS: *HR* Heparin 5,000 UNIT/ML VIAL SQ SCH ×2 (06:03→18:49)
[2021-06-08 06:37] LABS: ABG Base Excess -9 mEq/L (-2 to 3); ABG Chloride 109 mEq/L (98-107); ABG Glucose 175 mg/dL (60-95); ABG HCO3 18 mEq/L (21-27); ABG Ionized Calcium 1.01 mmol/L (1.15-1.35); ABG Oxygen Saturation 94 % (95-98); ABG PCO2 44 mmHg (35-45); ABG PH 7.23 pH Units (7.32-7.45); ABG PO2 84 mmHg (85-104); ABG TCO2 20 mEq/L (20-26)
[2021-06-08] MEDS: Metoprolol XL (24 HR) Succ 25 MG TAB.ER.24H PO SCH ×2 (08:20→19:43)
[2021-06-08] MEDS: Pantoprazole 40 MG VIAL IVP SCH (08:29)
[2021-06-08] MEDS: Aspirin Enteric Coated 81 MG Tablet PO SCH (08:30)
[2021-06-08] MEDS: Nicotine 21 MG PATCH.TD24 TD SCH (08:30)
[2021-06-08] MEDS: Chlorhexidine Rinse 15 ML MOUTHWASH MM SCH ×2 (09:00→19:43)
[2021-06-08] MEDS ORDERED: Aspirin Enteric Coated 81 MG Tablet PO SCH (09:00)
[2021-06-08] MEDS ORDERED: Pantoprazole 40 MG VIAL IVP SCH (09:00)
[2021-06-08] MEDS: Dexmedetomidine HCl 400 MCG/100 ML MLS IVC SCH (09:35)
[2021-06-08] MEDS ORDERED: Furosemide 40 MG/4 ML VIAL IVP ONE (10:06)
[2021-06-08] MEDS ORDERED: *HR* OxyCODONE/APAP 5/325 TABLET PO PRN (10:07)
[2021-06-08] MEDS: Ketorolac 30 MG/ML VIAL IVP SCH ×3 (10:50→23:13)
[2021-06-08] MEDS: DOBUTamine 1,000 MG/250 ML BAG IVC SCH (15:21)
[2021-06-08] MEDS: levoFLOXacin 750 MG/150 ML 750 MG/150 ML BAG IVPB SCH (15:23)
[2021-06-09] MEDS: *HR* OxyCODONE/APAP 5/325 TABLET PO PRN ×5 (03:39→21:39)
[2021-06-09] MEDS: Norepinephrine 4 MG/254 ML IV.SOLN IVC SCH ×4 (03:41→11:56)
[2021-06-09 03:57] LABS: VBG Ionized Calcium 1.09 mmol/L (1.15-1.35)
[2021-06-09 04:04] LABS: Hematocrit 22.2 % (37.5-50.1); Hemoglobin 7.3 g/dL (12.9-16.9); Immature Granulocytes % 0.8 % (0-4); Mean Corpuscular HGB Conc 32.9 g/dL (31.6-35.5); White Blood Count 9.8 K/mcL (4.3-11.1)
[2021-06-09 04:06] LABS: Basophils % 0.1 %; Immature Platelets 8.3 % (1.1-6.1); Lymphocytes % 20.7 %; Mean Corpuscular Hemoglobin 28.6 pg (28.0-33.3); Mean Corpuscular Volume 87.1 fL (83.0-100.0); Mean Platelet Volume 12.6 fL (9.4-12.4); Monocytes # 0.3 K/mcL (0.0-1.3); Monocytes % 3.5 %; Neutrophils # 7.3 K/mcL (1.6-8.9); Nucleated Red Blood Cells 0.2 /100 WBC (0); Red Blood Count 2.55 M/mcL (4.19-5.50); Red Cell Distribution Width 15.2 % (11.5-14.5); Segmented Neutrophils % 74.9 %
[2021-06-09 04:20] LABS: Platelet Count 75 K/mcL (140-400)
[2021-06-09 04:24] LABS: BUN/Creatinine Ratio 19 (6-26); Blood Urea Nitrogen 18 mg/dL (6-20); Calcium 7.3 mg/dL (8.6-10.3); Carbon Dioxide 20 mEq/L (23-29); Chloride 107 mEq/L (98-107); Glucose 115 mg/dL (70-105); Osmolality,Calculated 281 (280-300); Phosphorous 2.9 mg/dL (2.7-4.5); Sodium 134 mEq/L (136-145); eGFR For African Americans > 60 (> 60); eGFR For Non-African Americans > 60 (> 60)
[2021-06-09] MEDS: Potassium Chloride 40 MEQ/200 ML BAG IVPB PRN (05:10)
[2021-06-09] MEDS: Ketorolac 30 MG/ML VIAL IVP SCH ×4 (06:21→23:43)
[2021-06-09] MEDS: *HR* Heparin 5,000 UNIT/ML VIAL SQ SCH ×2 (06:21→17:34)
[2021-06-09] MEDS: Metoclopramide 10 MG/2 ML VIAL IVP SCH ×4 (06:22→23:43)
[2021-06-09] MEDS: Metoprolol XL (24 HR) Succ 25 MG TAB.ER.24H PO SCH ×2 (08:15→20:20)
[2021-06-09] MEDS: Nicotine 21 MG PATCH.TD24 TD SCH (08:15)
[2021-06-09] MEDS: Aspirin Enteric Coated 81 MG Tablet PO SCH (08:15)
[2021-06-09] MEDS: Cefepime HCl 2,000 MG in 0.9 % Sodium Chloride 10 ML IVP SCH ×3 (08:16→23:42)
[2021-06-09] MEDS: Pantoprazole 40 MG VIAL IVP SCH (08:17)
[2021-06-09] MEDS: DOBUTamine 1,000 MG/250 ML BAG IVC SCH (14:38)
[2021-06-09] MEDS: levoFLOXacin 750 MG/150 ML 750 MG/150 ML BAG IVPB SCH (14:55)
[2021-06-09 15:24] LABS: VBG Ionized Calcium 1.11 mmol/L (1.15-1.35)
[2021-06-09 15:41] LABS: Magnesium 2.5 mg/dL (1.6-2.6); Potassium 3.2 mEq/L (3.5-5.1)
[2021-06-09] MEDS ORDERED: *HR* LORazepam 2 MG/ML VIAL IVP PRN (15:54)
[2021-06-09] MEDS ORDERED: MOM Conc 10 ML UD.LIQ PO PRN (15:54)
[2021-06-09] MEDS ORDERED: Potassium Chloride 40 MEQ/200 ML BAG IVPB PRN (15:54)
[2021-06-09] MEDS ORDERED: Acetaminophen 325 MG TABLET PO PRN (15:54)
[2021-06-09] MEDS ORDERED: *HR* Dextrose 50 % in Water (Syg) 50 ML SYRINGE IVP PRN (15:54)
[2021-06-09] MEDS ORDERED: *HR* OxyCODONE/APAP 5/325 TABLET PO PRN (15:54)
[2021-06-09] MEDS: Dexmedetomidine HCl 400 MCG/100 ML MLS IVC SCH (17:05)
[2021-06-09] MEDS: Melatonin 3 MG TABLET PO PRN (20:26)
[2021-06-10] MEDS: Metoclopramide 10 MG/2 ML VIAL IVP SCH ×3 (05:28→16:43)
[2021-06-10] MEDS: *HR* Heparin 5,000 UNIT/ML VIAL SQ SCH (05:29)
[2021-06-10] MEDS: Ketorolac 30 MG/ML VIAL IVP SCH ×2 (05:29→11:26)
[2021-06-10] MEDS: Aspirin Enteric Coated 81 MG Tablet PO SCH (07:59)
[2021-06-10] MEDS: Nicotine 21 MG PATCH.TD24 TD SCH (08:00)
[2021-06-10] MEDS: Metoprolol XL (24 HR) Succ 25 MG TAB.ER.24H PO SCH ×2 (08:00→20:13)
[2021-06-10] MEDS: Cefepime HCl 2,000 MG in 0.9 % Sodium Chloride 10 ML IVP SCH ×3 (08:03→23:09)
[2021-06-10] MEDS: *HR* OxyCODONE/APAP 5/325 TABLET PO PRN ×3 (13:35→22:42)
[2021-06-10] MEDS: levoFLOXacin 750 MG/150 ML 750 MG/150 ML BAG IVPB SCH (13:38)
[2021-06-10 13:50] LABS: Hematocrit 21.4 % (37.5-50.1); Mean Corpuscular HGB Conc 32.7 g/dL (31.6-35.5); Mean Corpuscular Hemoglobin 29.2 pg (28.0-33.3); Mean Corpuscular Volume 89.2 fL (83.0-100.0); Mean Platelet Volume 11.7 fL (9.4-12.4); Platelet Count 105 K/mcL (140-400); Red Cell Distribution Width 16.5 % (11.5-14.5); White Blood Count 8.7 K/mcL (4.3-11.1)
[2021-06-10] MEDS: Dexmedetomidine HCl 400 MCG/100 ML MLS IVC SCH (14:03)
[2021-06-10 14:20] LABS: BUN/Creatinine Ratio 19 (6-26); Blood Urea Nitrogen 18 mg/dL (6-20); Calcium 7.4 mg/dL (8.6-10.3); Carbon Dioxide 18 mEq/L (23-29); Chloride 110 mEq/L (98-107); Glucose 119 mg/dL (70-105); Magnesium 2.2 mg/dL (1.6-2.6); Osmolality,Calculated 283 (280-300); Sodium 135 mEq/L (136-145); eGFR For African Americans > 60 (> 60); eGFR For Non-African Americans > 60 (> 60)
[2021-06-10] MEDS ORDERED: *HR* Warfarin 4 MG TABLET PO SCH (18:00)
[2021-06-10] MEDS: Melatonin 3 MG TABLET PO PRN (23:17)
[2021-06-11] MEDS: *HR* OxyCODONE/APAP 5/325 TABLET PO PRN ×2 (02:51→23:48)
[2021-06-11] MEDS: Cefepime HCl 2,000 MG in 0.9 % Sodium Chloride 10 ML IVP SCH ×3 (07:44→23:48)
[2021-06-11] MEDS: Aspirin Enteric Coated 81 MG Tablet PO SCH (08:44)
[2021-06-11] MEDS: Nicotine 21 MG PATCH.TD24 TD SCH (08:45)
[2021-06-11] MEDS: Metoprolol XL (24 HR) Succ 25 MG TAB.ER.24H PO SCH (08:45)
[2021-06-11] MEDS ORDERED: Lidocaine -MPF 1% 5 ML AMPUL INFILT ONE (09:02)
[2021-06-11 12:51] LABS: Hematocrit 22.1 % (37.5-50.1); Hemoglobin 7.1 g/dL (12.9-16.9); Mean Corpuscular HGB Conc 32.1 g/dL (31.6-35.5); Mean Corpuscular Hemoglobin 29.1 pg (28.0-33.3); Mean Corpuscular Volume 90.6 fL (83.0-100.0); Mean Platelet Volume 11.5 fL (9.4-12.4); Platelet Count 123 K/mcL (140-400); Red Blood Count 2.44 M/mcL (4.19-5.50); Red Cell Distribution Width 17.2 % (11.5-14.5); White Blood Count 9.2 K/mcL (4.3-11.1)
[2021-06-11 12:59] LABS: INR 1.6; Prothrombin Time 17.5 Seconds (9.4-12.1)
[2021-06-11] MEDS: Furosemide 20 MG TABLET PO SCH ×2 (13:00→20:46)
[2021-06-11] MEDS: levoFLOXacin 750 MG/150 ML 750 MG/150 ML BAG IVPB SCH (13:04)
[2021-06-11 13:08] LABS: BUN/Creatinine Ratio 15 (6-26); Blood Urea Nitrogen 14 mg/dL (6-20); Calcium 7.6 mg/dL (8.6-10.3); Carbon Dioxide 21 mEq/L (23-29); Chloride 110 mEq/L (98-107); Glucose 113 mg/dL (70-105); Magnesium 1.9 mg/dL (1.6-2.6); Osmolality,Calculated 281 (280-300); Potassium 3.4 mEq/L (3.5-5.1); Sodium 135 mEq/L (136-145); eGFR For African Americans > 60 (> 60); eGFR For Non-African Americans > 60 (> 60)
[2021-06-11] MEDS: Dexmedetomidine HCl 400 MCG/100 ML MLS IVC SCH (15:13)
[2021-06-11] MEDS ORDERED: Warfarin perPT PO PRN (18:00)
[2021-06-11] MEDS ORDERED: *HR* Warfarin 3 MG TABLET PO ONE (18:00)
[2021-06-11] MEDS: Melatonin 3 MG TABLET PO PRN (23:49)
[2021-06-12 03:43] LABS: INR 1.8
[2021-06-12] MEDS: *HR* OxyCODONE/APAP 5/325 TABLET PO PRN ×3 (08:26→23:30)
[2021-06-12] MEDS: Aspirin Enteric Coated 81 MG Tablet PO SCH (08:27)
[2021-06-12] MEDS: Furosemide 20 MG TABLET PO SCH ×2 (08:27→20:51)
[2021-06-12] MEDS: Nicotine 21 MG PATCH.TD24 TD SCH (08:27)
[2021-06-12] MEDS: Cefepime HCl 2,000 MG in 0.9 % Sodium Chloride 10 ML IVP SCH ×3 (08:28→23:46)
[2021-06-12] MEDS: Dexmedetomidine HCl 400 MCG/100 ML MLS IVC SCH (14:45)
[2021-06-12] MEDS: levoFLOXacin 750 MG/150 ML 750 MG/150 ML BAG IVPB SCH (14:49)
[2021-06-12] MEDS ORDERED: *HR* Warfarin 2.5 MG TABLET PO ONE (18:00)
[2021-06-12] MEDS: Melatonin 3 MG TABLET PO PRN (23:30)
[2021-06-13 06:54] LABS: Basophils % 0.3 %; Hematocrit 23.5 % (37.5-50.1); Hemoglobin 7.7 g/dL (12.9-16.9); Immature Granulocytes % 1.5 % (0-4); Lymphocytes # 2.2 K/mcL (0.6-4.6); Lymphocytes % 20.1 %; Mean Corpuscular HGB Conc 32.8 g/dL (31.6-35.5); Mean Corpuscular Hemoglobin 29.7 pg (28.0-33.3); Mean Corpuscular Volume 90.7 fL (83.0-100.0); Mean Platelet Volume 11.5 fL (9.4-12.4); Monocytes # 0.7 K/mcL (0.0-1.3); Monocytes % 5.9 %; Platelet Count 117 K/mcL (140-400); Red Blood Count 2.59 M/mcL (4.19-5.50); Red Cell Distribution Width 19.2 % (11.5-14.5); Segmented Neutrophils % 72.2 %
[2021-06-13 07:04] LABS: BUN/Creatinine Ratio 16 (6-26); Blood Urea Nitrogen 14 mg/dL (6-20); Calcium 8.3 mg/dL (8.6-10.3); Carbon Dioxide 27 mEq/L (23-29); Chloride 102 mEq/L (98-107); Glucose 101 mg/dL (70-105); Osmolality,Calculated 279 (280-300); Potassium 3.3 mEq/L (3.5-5.1); Sodium 134 mEq/L (136-145); eGFR For African Americans > 60 (> 60); eGFR For Non-African Americans > 60 (> 60)
[2021-06-13 07:50] LABS: Prothrombin Time 22.4 Seconds (9.4-12.1)
[2021-06-13] MEDS: Furosemide 20 MG TABLET PO SCH ×2 (08:25→21:44)
[2021-06-13] MEDS: Aspirin Enteric Coated 81 MG Tablet PO SCH (08:25)
[2021-06-13] MEDS: Cefepime HCl 2,000 MG in 0.9 % Sodium Chloride 10 ML IVP SCH ×2 (08:25→17:34)
[2021-06-13] MEDS: Nicotine 21 MG PATCH.TD24 TD SCH (08:26)
[2021-06-13] MEDS ORDERED: Ketorolac 30 MG/ML VIAL IVP ONE (10:02)
[2021-06-13] MEDS: *HR* OxyCODONE/APAP 5/325 TABLET PO PRN ×3 (13:36→21:44)
[2021-06-13] MEDS: levoFLOXacin 750 MG/150 ML 750 MG/150 ML BAG IVPB SCH (13:37)
[2021-06-13] MEDS: Dexmedetomidine HCl 400 MCG/100 ML MLS IVC SCH (16:27)
[2021-06-13] MEDS ORDERED: *HR* Warfarin 2 MG TABLET PO ONE (18:00)
[2021-06-13] MEDS: Melatonin 3 MG TABLET PO PRN (21:43)
[2021-06-14] MEDS: Cefepime HCl 2,000 MG in 0.9 % Sodium Chloride 10 ML IVP SCH ×2 (00:37→09:03)
[2021-06-14 03:56] LABS: Basophils % 0.4 %; Hematocrit 23.9 % (37.5-50.1); Hemoglobin 7.8 g/dL (12.9-16.9); Immature Granulocytes % 1.2 % (0-4); Lymphocytes # 2.4 K/mcL (0.6-4.6); Mean Corpuscular HGB Conc 32.6 g/dL (31.6-35.5); Mean Corpuscular Hemoglobin 30.6 pg (28.0-33.3); Mean Corpuscular Volume 93.7 fL (83.0-100.0); Mean Platelet Volume 11.4 fL (9.4-12.4); Monocytes # 0.6 K/mcL (0.0-1.3); Monocytes % 5.7 %; Neutrophils # 7.6 K/mcL (1.6-8.9); Platelet Count 121 K/mcL (140-400); Red Blood Count 2.55 M/mcL (4.19-5.50); Red Cell Distribution Width 20.1 % (11.5-14.5); Segmented Neutrophils % 70.7 %; White Blood Count 10.7 K/mcL (4.3-11.1)
[2021-06-14 04:04] LABS: INR 1.9; Prothrombin Time 20.7 Seconds (9.4-12.1)
[2021-06-14 04:17] LABS: BUN/Creatinine Ratio 17 (6-26); Blood Urea Nitrogen 17 mg/dL (6-20); Calcium 8.4 mg/dL (8.6-10.3); Carbon Dioxide 24 mEq/L (23-29); Chloride 102 mEq/L (98-107); Glucose 134 mg/dL (70-105); Osmolality,Calculated 280 (280-300); Potassium 3.5 mEq/L (3.5-5.1); Sodium 133 mEq/L (136-145); eGFR For African Americans > 60 (> 60); eGFR For Non-African Americans > 60 (> 60)
[2021-06-14 07:16] VITALS: BP 105/70; TEMP 98
[2021-06-14] MEDS: Furosemide 20 MG TABLET PO SCH (08:59)
[2021-06-14] MEDS: Aspirin Enteric Coated 81 MG Tablet PO SCH (08:59)
[2021-06-14] MEDS: Nicotine 21 MG PATCH.TD24 TD SCH (09:02)
[2021-06-14 11:36] VITALS: PULSE 83; O2SAT 100
[2021-06-14] MEDS ORDERED: *HR* Warfarin 3 MG TABLET PO ONE (18:00)
== END 2021-06-14 13:18 | disposition left against medical advice (07) | DRG 710 ==
LOC: EMEROOARM 09:42 → 2NENU 09:42 → ICNU 06-07 08:01 → 2NNU 06-09 18:43
PROVIDERS: ADMIT Internal Medicine; ATTEND Internal Medicine

== ENCOUNTER 2021-06-24 08:59 | Observation (INO) ==
[2021-06-24] MEDS ORDERED: Naloxone 0.4 MG/ML INJ IVP PRN (10:46)
[2021-06-24] MEDS: levoFLOXacin 750 MG/150 ML 750 MG/150 ML BAG IVPB SCH (14:18)
[2021-06-24] MEDS: Cefepime HCl 2,000 MG in 0.9 % Sodium Chloride 10 ML IVP SCH ×2 (16:10→23:23)
[2021-06-24] MEDS: Acetaminophen 325 MG TABLET PO PRN (19:26)
[2021-06-25] MEDS: *HR* Enoxaparin 40 MG/0.4 ML SYRINGE SQ SCH (05:01)
[2021-06-25 07:18] LABS: Basophils % 0.5 %; Eosinophils # 0.2 K/mcL (0.0-0.6); Eosinophils % 3.1 %; Hematocrit 28.4 % (37.5-50.1); Immature Granulocytes % 0.3 % (0-4); Lymphocytes # 1.5 K/mcL (0.6-4.6); Lymphocytes % 26.4 %; Mean Corpuscular HGB Conc 31.7 g/dL (31.6-35.5); Mean Corpuscular Hemoglobin 30.5 pg (28.0-33.3); Mean Corpuscular Volume 96.3 fL (83.0-100.0); Mean Platelet Volume 10.9 fL (9.4-12.4); Monocytes # 0.4 K/mcL (0.0-1.3); Monocytes % 7.2 %; Neutrophils # 3.6 K/mcL (1.6-8.9); Platelet Count 147 K/mcL (140-400); Red Blood Count 2.95 M/mcL (4.19-5.50); Red Cell Distribution Width 18.9 % (11.5-14.5); Segmented Neutrophils % 62.5 %; White Blood Count 5.8 K/mcL (4.3-11.1)
[2021-06-25 07:37] LABS: BUN/Creatinine Ratio 8 (6-26); Blood Urea Nitrogen 8 mg/dL (6-20); Calcium 8.6 mg/dL (8.6-10.3); Carbon Dioxide 26 mEq/L (23-29); Chloride 107 mEq/L (98-107); Glucose 88 mg/dL (70-105); Osmolality,Calculated 284 (280-300); Potassium 3.7 mEq/L (3.5-5.1); Sodium 138 mEq/L (136-145); eGFR For African Americans > 60 (> 60); eGFR For Non-African Americans > 60 (> 60)
[2021-06-25] MEDS: Cefepime HCl 2,000 MG in 0.9 % Sodium Chloride 10 ML IVP SCH ×3 (07:58→23:33)
[2021-06-25] MEDS: levoFLOXacin 750 MG/150 ML 750 MG/150 ML BAG IVPB SCH (07:59)
[2021-06-25 08:51] LABS: Hepatitis B Surface Antigen Nonreactive (Nonreactive)
[2021-06-25 09:20] LABS: HIV-1&2 Antibody & p24 Ag Nonreactive (Nonreactive); Hepatitis B Core IgM Nonreactive (Nonreactive)
[2021-06-25 09:21] LABS: Hepatitis A Antibody IgM Nonreactive (Nonreactive)
[2021-06-25 11:09] LABS: Hepatitis C Virus Antibody Reactive (Nonreactive)
[2021-06-25 12:25] LABS: Amphetamine Screen,Urine Negative ng/mL (Cutoff=1000); Barbiturate Screen,Urine Negative ng/mL (Cutoff=200); Benzodiazepines Screen,Urine Negative ng/mL (Cutoff=200); Cannabinoid Screen,Urine Positive ng/mL (Cutoff = 50); Cocaine Screen,Urine Negative ng/mL (Cutoff= 300); Opiate Screen,Urine Negative ng/mL (Cutoff=300); Phencyclidine Screen,Urine Negative ng/mL (Cutoff=25)
[2021-06-25] MEDS: Acetaminophen 325 MG TABLET PO PRN ×2 (15:14→20:59)
[2021-06-25] MEDS: Melatonin 3 MG TABLET PO SCH (20:59)
[2021-06-25] MEDS ORDERED: Acetaminophen/Butalbital/CaffeineTABLET PO ONE (21:50)
[2021-06-26] MEDS: *HR* Enoxaparin 40 MG/0.4 ML SYRINGE SQ SCH ×2 (05:13→06:25)
[2021-06-26 05:30] LABS: Basophils % 0.7 %; Eosinophils # 0.2 K/mcL (0.0-0.6); Eosinophils % 3.5 %; Hematocrit 26.9 % (37.5-50.1); Hemoglobin 8.5 g/dL (12.9-16.9); Immature Granulocytes % 0.3 % (0-4); Lymphocytes # 1.4 K/mcL (0.6-4.6); Lymphocytes % 25.2 %; Mean Corpuscular HGB Conc 31.6 g/dL (31.6-35.5); Mean Corpuscular Hemoglobin 30.4 pg (28.0-33.3); Mean Corpuscular Volume 96.1 fL (83.0-100.0); Mean Platelet Volume 10.3 fL (9.4-12.4); Monocytes # 0.4 K/mcL (0.0-1.3); Monocytes % 7.5 %; Neutrophils # 3.6 K/mcL (1.6-8.9); Platelet Count 143 K/mcL (140-400); Red Cell Distribution Width 18.8 % (11.5-14.5); Segmented Neutrophils % 62.8 %; White Blood Count 5.7 K/mcL (4.3-11.1)
[2021-06-26 05:47] LABS: BUN/Creatinine Ratio 10 (6-26); Blood Urea Nitrogen 11 mg/dL (6-20); Calcium 8.4 mg/dL (8.6-10.3); Carbon Dioxide 24 mEq/L (23-29); Chloride 107 mEq/L (98-107); Glucose 105 mg/dL (70-105); Osmolality,Calculated 284 (280-300); Potassium 3.6 mEq/L (3.5-5.1); Sodium 137 mEq/L (136-145); eGFR For African Americans > 60 (> 60); eGFR For Non-African Americans > 60 (> 60)
[2021-06-26] MEDS: levoFLOXacin 750 MG/150 ML 750 MG/150 ML BAG IVPB SCH (08:43)
[2021-06-26] MEDS: Cefepime HCl 2,000 MG in 0.9 % Sodium Chloride 10 ML IVP SCH ×2 (08:43→16:05)
[2021-06-26] MEDS: Acetaminophen 325 MG TABLET PO PRN (16:03)
[2021-06-26] MEDS: Melatonin 3 MG TABLET PO SCH (20:03)
[2021-06-26] MEDS: Ibuprofen 400 MG TABLET PO PRN (20:03)
[2021-06-27] MEDS: Cefepime HCl 2,000 MG in 0.9 % Sodium Chloride 10 ML IVP SCH ×3 (00:56→16:52)
[2021-06-27] MEDS: *HR* Enoxaparin 40 MG/0.4 ML SYRINGE SQ SCH (05:45)
[2021-06-27 06:06] LABS: Basophils # 0.1 K/mcL (0.0-0.2); Basophils % 0.9 %; Eosinophils # 0.2 K/mcL (0.0-0.6); Eosinophils % 3.4 %; Hematocrit 27.1 % (37.5-50.1); Hemoglobin 8.6 g/dL (12.9-16.9); Immature Granulocytes % 0.3 % (0-4); Lymphocytes # 1.6 K/mcL (0.6-4.6); Lymphocytes % 27.9 %; Mean Corpuscular HGB Conc 31.7 g/dL (31.6-35.5); Mean Corpuscular Hemoglobin 30.6 pg (28.0-33.3); Mean Corpuscular Volume 96.4 fL (83.0-100.0); Mean Platelet Volume 10.8 fL (9.4-12.4); Monocytes # 0.4 K/mcL (0.0-1.3); Monocytes % 6.7 %; Neutrophils # 3.5 K/mcL (1.6-8.9); Platelet Count 147 K/mcL (140-400); Red Blood Count 2.81 M/mcL (4.19-5.50); Red Cell Distribution Width 18.7 % (11.5-14.5); Segmented Neutrophils % 60.8 %; White Blood Count 5.8 K/mcL (4.3-11.1)
[2021-06-27 06:24] LABS: BUN/Creatinine Ratio 13 (6-26); Blood Urea Nitrogen 14 mg/dL (6-20); Calcium 8.4 mg/dL (8.6-10.3); Carbon Dioxide 24 mEq/L (23-29); Chloride 106 mEq/L (98-107); Glucose 95 mg/dL (70-105); Osmolality,Calculated 280 (280-300); Sodium 135 mEq/L (136-145); eGFR For African Americans > 60 (> 60); eGFR For Non-African Americans > 60 (> 60)
[2021-06-27 06:28] VITALS: PULSE 72; O2SAT 95
[2021-06-27] MEDS: levoFLOXacin 750 MG/150 ML 750 MG/150 ML BAG IVPB SCH (08:36)
[2021-06-27] MEDS: Ibuprofen 400 MG TABLET PO PRN (08:41)
[2021-06-27 15:47] VITALS: BP 159/102; TEMP 98.5
== END 2021-06-27 17:52 | disposition left against medical advice (07) ==
LOC: 2NENU
PROVIDERS: ADMIT Internal Medicine; ATTEND Internal Medicine